=== PATIENT | male | born 1955 | race Caucasian/White ===

== ENCOUNTER 2018-01-24 15:22 | Emergency (ER) | payer OTHER ==
[~2018-01-24] VITALS: Ht 177.8 cm; Wt 93.2 kg
[2018-01-24 16:12] VITALS: BP 183/101; TEMP 99.5
[2018-01-24] MEDS ORDERED: FLEXERIL 1010 MG/TAB PO (16:49)
[2018-01-24] MEDS ORDERED: NORCO 325 MG-51 TAB PO (16:49)
[2018-01-24 17:22] VITALS: PULSE 81
== END 2018-01-24 17:22 | disposition home or self-care (01) ==
LOC: COL.ER 15:22
DX: S54.02XA Injury of ulnar nerve at forearm level, left arm, initial encounter (principal); M25.511 Pain in right shoulder; I10 Essential (primary) hypertension; Z23 Encounter for immunization; Z98.890 Other specified postprocedural states; V74.6XXA Passenger on bus injured in collision with heavy transport vehicle or bus in traffic accident, initial encounter

== ENCOUNTER 2018-07-08 14:04 | Day surgery (SDC) | payer OTHER ==
[~2018-07-08] VITALS: Ht 177.8 cm; Wt 91.5 kg
[2018-07-08] VITALS (8 sets, daily range): BP systolic 136–1039; BP diastolic 80–92; PULSE 72–98; TEMP 98–998
[~2018-07-08 14:04] MED LIST: ASPIRIN 32325 MG/TAB PO; COZAAR 50MG50 MG/TAB PO; FLEXERIL 1010 MG/TAB PO; NORCO 325 MG-51 TAB PO; PRIL40 PO; TOPROL XL 50MG50 MG PO
[2018-07-08] MEDS ORDERED: LOPID 600M600 MG/TAB PO (14:31)
[2018-07-08] MEDS ORDERED: EPA FISH OIL1 SGL PO (14:32)
[2018-07-08] MEDS ORDERED: PRAVACHOL 40MG40 MG PO (14:33)
[2018-07-09] VITALS (11 sets, daily range): BP systolic 114–163; BP diastolic 74–112; PULSE 84–109; TEMP 97.5–98.5
== END 2018-07-09 12:47 | disposition home or self-care (01) ==
LOC: SDCO 14:04 → SURG 16:40 → SDCO 07-09 12:47
DX: C67.5 Malignant neoplasm of bladder neck (principal); N30.31 Trigonitis with hematuria; F41.0 Panic disorder [episodic paroxysmal anxiety]; I35.1 Nonrheumatic aortic (valve) insufficiency; E78.5 Hyperlipidemia, unspecified; I10 Essential (primary) hypertension; K75.81 Nonalcoholic steatohepatitis (NASH); G47.33 Obstructive sleep apnea (adult) (pediatric); G43.909 Migraine, unspecified, not intractable, without status migrainosus; D69.6 Thrombocytopenia, unspecified; K21.9 Gastro-esophageal reflux disease without esophagitis; F43.10 Post-traumatic stress disorder, unspecified; Z96.642 Presence of left artificial hip joint; Z79.82 Long term (current) use of aspirin; Z83.3 Family history of diabetes mellitus; Z82.49 Family history of ischemic heart disease and other diseases of the circulatory system; Z80.1 Family history of malignant neoplasm of trachea, bronchus and lung
CPT/HCPCS: OP; J0690; J1100; J1885; J2405; J2704; J3010; J3480; J7120; Q9967

== ENCOUNTER 2018-07-23 06:24 | Day surgery (SDC) | payer OTHER ==
[~2018-07-23] VITALS: Ht 177.8 cm; Wt 97.7 kg
[2018-07-23] VITALS (10 sets, daily range): BP systolic 128–151; BP diastolic 73–90; PULSE 59–92; TEMP 97.6–98.3
[~2018-07-23 06:24] MED LIST changes: +EPA FISH OIL1 SGL PO; +LOPID 600M600 MG/TAB PO; +PRAVACHOL 40MG40 MG PO
[2018-07-24 03:32] VITALS: BP 125/54; PULSE 68; TEMP 98.2
[2018-07-24 08:35] VITALS: BP 147/90; PULSE 71; TEMP 97.6
[2018-07-24 13:00] VITALS: BP 143/77; PULSE 71; TEMP 97.5
== END 2018-07-24 14:57 | disposition home or self-care (01) ==
LOC: SDCO 06:24 → SURG 10:30 → SDCO 07-24 14:57
DX: C61 Malignant neoplasm of prostate (principal); F41.0 Panic disorder [episodic paroxysmal anxiety]; I35.0 Nonrheumatic aortic (valve) stenosis; E78.5 Hyperlipidemia, unspecified; I10 Essential (primary) hypertension; K75.81 Nonalcoholic steatohepatitis (NASH); G47.33 Obstructive sleep apnea (adult) (pediatric); N30.30 Trigonitis without hematuria; H54.62 Unqualified visual loss, left eye, normal vision right eye; K21.9 Gastro-esophageal reflux disease without esophagitis; F43.10 Post-traumatic stress disorder, unspecified; D69.6 Thrombocytopenia, unspecified; Z96.642 Presence of left artificial hip joint; Z79.82 Long term (current) use of aspirin; Z83.3 Family history of diabetes mellitus; Z82.49 Family history of ischemic heart disease and other diseases of the circulatory system; Z82.3 Family history of stroke; Z80.1 Family history of malignant neoplasm of trachea, bronchus and lung
CPT/HCPCS: OP; J0690; J1100; J1885; J2405; J2704; J3010; J7120

== ENCOUNTER 2018-12-01 10:30 | Outpatient (RCR) | payer OTHER | END 2019-01-21 | disposition home or self-care (01) | LOC: MKS.ESL.OT | DX: H54.62 Unqualified visual loss, left eye, normal vision right eye (principal); Z79.2 Long term (current) use of antibiotics; Z79.82 Long term (current) use of aspirin; Z79.899 Other long term (current) drug therapy ==

== ENCOUNTER 2019-02-18 15:37 | Inpatient (IN) | payer OTHER ==
[~2019-02-18] VITALS: Ht 177.8 cm; Wt 87.9 kg
[~2019-02-18 15:37] MED LIST changes: -PRIL40 PO; +PRILOSEC 20MG20 MG PO
[2019-03-03] VITALS (12 sets, daily range): BP systolic 116–178; BP diastolic 67–93; PULSE 59–77; TEMP 97.7–98
[2019-03-03] MEDS ORDERED: LOPRESSOR100 MG PO (11:27)
--- NOTE | 2019-03-03 11:30 | NUR ---
The patient ambulated back to [place] [facility] independently using a steady gait and appeared to tolerate the activity well. Vital signs obtained. Consent signed. 18G IV started in right wrist with one stick, LR infusing without difficulty. Heart Reg with murmur present. Lungs clear. Bowel sounds audible. Call light is within reach. brought back to be at his bedside. The patient denies any further needs at this time. Will continue to monitor the patient.
--- NOTE | 2019-03-03 16:42 | NUR ---
Patient doing well post op. Denies pain. VSS on room air. Scds ble. CBI to slow/mod rate. fruit punch tinged output, no clots noted. He tolerated meal, no nausea. Iv to INT.
--- NOTE | 2019-03-03 19:27 | NUR ---
Patient standing at bedside, he is experiencing bladder spasms. Leaking noted around fole. Prn levsin per orders. Notified & updated him on patient status, patient to stay tonight continue with CBI. Cbi output dark pink tinged with CBI to mod rate. Patient home meds reordered. Hand irrigation completed, no clots obtained. Jacque Rn given bedside report
--- NOTE | 2019-03-03 22:48 | NUR ---
Hand irrigated catheter per patient request, no clots returned. Patient having less bladder spasms after dose of Levsin, will have drainage around catheter with spasm. Offered B&O suppository for spasms, denied need at this time. Reports no pain, CBI continues at moderate rate.
--- NOTE | 2019-03-03 23:15 | NUR ---
Patient continues to have intermittent bladder spasms with drainage around sampson catheter. Levsin SL given at this time.
--- NOTE | 2019-03-04 00:30 | NUR ---
PATIENT REPORTS LESS BLADDER SPASMS.
--- NOTE | 2019-03-04 03:20 | NUR ---
Patient still having bladder spasms, hand irrigated catheter for return of numerous small clots. Patient had immediate relief, increased CBI to irrigate. Medicated with Levsin at this time. Patient without bladder spasms at 0340 while nurse remained in the room. Instructed patient to call if spasms return.
[2019-03-04 03:34] VITALS: BP 129/65; PULSE 66; TEMP 98.2
--- NOTE | 2019-03-04 04:22 | NUR ---
Patient remains without bladder spasms, catheter draining dark pink urine with CBI at moderate rate.
--- NOTE | 2019-03-04 06:15 | NUR ---
Patient denies bladder spasms, urine dark red. Hand irrigated with no return of any clots. CBI at moderate rate.
[2019-03-04 08:12] VITALS: BP 127/72; PULSE 64; TEMP 97.8
--- NOTE | 2019-03-04 09:33 | NUR ---
Initial visit; Patient and his thanked Him Assistant for looking in on Jerad and keeping him in her prayers.
--- NOTE | 2019-03-04 09:47 | NUR ---
CARMENZA met with the patient to discuss a discharge plan. The patient lives in [place] with his , Nazanin. The patient has an accessible shower and a walker, but does not need it to ambulate. The patient reports independence with ADLs. The patient's PCP is through the OR and may use Dr. Rebolledo, if needed. The patient receives his medication via mail from the OR. The patient does not have advanced directives in the EMR, but reports he does have them completed. The patient plans to return home upon discharge. There are no additional needs at this time.
--- NOTE | 2019-03-04 11:30 | NUR ---
At change of shift this am, increased CBI. Urine is starting to get less red. No clots noted. Patient denies pain or bladder spasms at this time. CBI is flowing very quickly, we are emptying his catheter every 30-[address] Lua has been in and seen patient. He is planning to keep patient overnight to observe. No other changes at this time. Call light within reach.
--- NOTE | 2019-03-04 11:38 | NUR ---
First visit from the physical therapy aide. No needs right now.
[2019-03-04 12:22] VITALS: BP 115/60; PULSE 57; TEMP 98.3
[2019-03-04 15:55] VITALS: BP 118/66; PULSE 60; TEMP 98.1
--- NOTE | 2019-03-04 16:08 | NUR ---
PATIENT IN ROOM IN BED WHEN DOUBLE NEEDLE OPERATOR LOCKSTITCH ARRIVED. AT BEDSIDE. CBI IN PLACE AND DRAINING. PATIENT TOLERATING WELL. BAG DRAINED AT THIS TIME. NO CONCERNS AT THIS TIME. NO COMPLAINTS VOICED FROM PATIENT. REPORT GIVEN TO PRIMARY.
--- NOTE | 2019-03-04 17:20 | NUR ---
c/o having bladder spasms, medicated with levsin po
--- NOTE | 2019-03-04 17:45 | NUR ---
assisted up to bathroom to try and have bowel movment, was not succesful but stated when he stood up he had a couple of clots and then felt like the pressure and the spasm was gone, back in bed now with CBI continuing to run at fast rate and urine in tubing is pink
--- NOTE | 2019-03-04 19:00 | NUR ---
Patients urine is starting to look a lot better. No clots noted at this time. His CBI has been slowed down. Family at bedside. Patient did have some spasms earlier in the afternoon, levsin given and it helped. When he got up to the bathroom he also had a few clots pass through and he stated that helped a lot as well. No other changes at this time. Call light within reach.
[2019-03-04 19:57] VITALS: BP 125/64; PULSE 57; TEMP 97.8
--- NOTE | 2019-03-04 20:00 | NUR ---
Patient takes HS meds. Denies bladder spasms. CBI is at moderate rate, urine is pink tinged without noted clots, draining well at this time. Patient denies pain. SL to right wrist without redness or swelling noted.
[2019-03-04 23:33] VITALS: BP 108/60; PULSE 60; TEMP 97.6
--- NOTE | 2019-03-05 03:13 | NUR ---
Urine remain light pink with no clots noted.
[2019-03-05 03:32] VITALS: BP 107/60; PULSE 56; TEMP 97.9
--- NOTE | 2019-03-05 06:00 | NUR ---
Urine remains light pink, CBI at slow rate. Patient denies pain, no concerns this AM.
[2019-03-05 08:07] VITALS: BP 132/74; PULSE 56; TEMP 97.9
--- NOTE | 2019-03-05 11:00 | NUR ---
Talley catheter has been discontinued. Patient tolerated it well. Explained six bottle routine and the criteria for discharge. Patient verbalized understanding. Patient denies any pain or spasms. No other changes at this time. Call light within reach.
[2019-03-05 12:15] VITALS: BP 147/76; PULSE 58; TEMP 97.7
--- NOTE | 2019-03-05 15:30 | NUR ---
Patient is discharging home. Discharge instructions discussed with patient. No questions verbalized. INT discontinued. Patient has a one week follow up scheduled. Copies of discharge instructions sent with patient. All belongings packed up and sent with him. No other changes at this time. Call light within reach.
== END 2019-03-05 15:30 | disposition home or self-care (01) | DRG 670 ==
LOC: SURG 03-03 10:51 → INPTSU 03-03 10:51 → SDCO 03-03 13:00 → EDSTATUS 03-03 13:00 → SURG 03-03 13:00
PROVIDERS: ADMIT Urology
PROC: 0TBB8ZZ Excision of Bladder, Via Natural or Artificial Opening Endoscopic (ICD-10-PCS; principal; 2019-03-03 13:00)
DX: C67.4 Malignant neoplasm of posterior wall of bladder (principal); F41.9 Anxiety disorder, unspecified; E78.5 Hyperlipidemia, unspecified; I10 Essential (primary) hypertension; K75.81 Nonalcoholic steatohepatitis (NASH); Z86.73 Personal history of transient ischemic attack (TIA), and cerebral infarction without residual deficits; Z96.642 Presence of left artificial hip joint
CPT/HCPCS: J0690; J1100; J1885; J2405; J2704; J3010; J7120

== ENCOUNTER 2020-03-02 11:41 | Emergency (ER) | payer OTHER ==
[~2020-03-02] VITALS: Ht 177.8 cm; Wt 90.9 kg
[~2020-03-02 11:41] MED LIST changes: +LOPRESSOR100 MG PO
[2020-03-02 13:49] LABS: BASO # 0.1 (0.0-0.2); BASO % 1.2 % (0.0-2.0); EOS # 0.4 (0.0-0.7); EOS % 5.6 % (0-4.0); GRAN # 4.2 (1.4-6.5); GRAN % 61.5 % (42.2-75.2); HEMATOCRIT 44.5 % (42.0-52.0); HEMOGLOBIN 15.3 g/dl (13.5-18.0); LYMPH # 1.5 (1.2-3.4); LYMPH % 22.4 % (20.0-51.0); MEAN CELL VOLUME 96 fl (80.0-100.0); MEAN CORPUSCULAR HEMOGLOBIN 33 pg (27.0-31.0); MEAN CORPUSCULAR HGB CONC 34 g/dl (33.0-37.0); MEAN PLATELET VOLUME 11.5 fl (7.4-10.4); MONO # 0.6 (0.1-0.6); PLATELET COUNT 101 K/mm3 (130-400); RED BLOOD COUNT 4.66 M/mm3 (4.20-5.60); REDCELL DISTRIBUTION WIDTH-CV 13.5 % (11.5-14.5)
[2020-03-02 14:06] LABS: ALANINE AMINOTRANSFERASE 29 U/L (4-49); ALBUMIN 4.1 gm/dL (3.5-5.0); ALKALINE PHOSPHATASE 95 U/L (50-136); ANION GAP 7 mmol/L (7-16); AST,SGOT 50 U/L (15-37); BILIRUBIN,TOTAL 1.6 mg/dL (0.0-1.0); BLOOD UREA NITROGEN 14 mg/dL (9-20); CALCIUM 9.5 mg/dL (8.4-10.2); CARBON DIOXIDE 26 mmol/L (22-30); CHLORIDE 105 mmol/L (98-107); GLUCOSE 109 mg/dL (74-106); POTASSIUM 4.1 mmol/L (3.4-5.0); SODIUM 137 mmol/L (137-145); TOTAL PROTEIN 8.2 gm/dL (6.4-8.2)
[2020-03-02 14:07] LABS: C-REACTIVE PROTEIN < 0.5 mg/dL (0.0-0.9)
[2020-03-02 14:18] LABS: TROPONIN-I 0.042 ng/mL (0.000-0.035)
[2020-03-02 17:00] VITALS: BP 166/104; PULSE 79; TEMP 98.2
[2020-03-02] MEDS ORDERED: ZITHROMAX Z PA250 MG PO (17:18)
== END 2020-03-02 17:30 | disposition home or self-care (01) ==
LOC: COL.ER 11:41
PROVIDERS: Nurse Practitioner
DX: R05 Cough (principal); I10 Essential (primary) hypertension; I35.0 Nonrheumatic aortic (valve) stenosis; Z85.51 Personal history of malignant neoplasm of bladder; Z79.899 Other long term (current) drug therapy

== ENCOUNTER 2020-06-28 15:54 | Outpatient (RCR) | payer OTHER ==
[~2020-06-28 15:54] MED LIST changes: +ZITHROMAX Z PA250 MG PO
== END 2020-09-17 | disposition home or self-care (01) ==
LOC: COL.CR
DX: Z48.812 Encounter for surgical aftercare following surgery on the circulatory system (principal)

== ENCOUNTER 2023-08-08 08:21 | Day surgery (SDC) | payer OTHER ==
[~2023-08-08] VITALS: Ht 177.8 cm; Wt 85.7 kg
[2023-08-08] MEDS ORDERED: COZAAR 25MG25 MG/TAB PO (10:00)
[2023-08-08] MEDS ORDERED: ASPIRIN E.C. 8181 MG PO (10:01)
[2023-08-08] MEDS ORDERED: LIPITOR20 MG PO (10:02)
[2023-08-08] MEDS ORDERED: COREG 3.123.125 MG/T PO (10:02)
[2023-08-08] MEDS ORDERED: JARDIANCE25 PO (10:04)
[2023-08-08] MEDS ORDERED: PEPCID 20MG TAB20 MG PO (10:05)
[2023-08-08] MEDS ORDERED: TRICOR145 MG PO (10:05)
[2023-08-08] MEDS ORDERED: KLOR-CON20 MEQ PO (10:06)
[2023-08-08 10:13] VITALS: BP 128/81; PULSE 58; TEMP 97.7
[2023-08-08 10:52] VITALS: BP 102/76; PULSE 63; TEMP 97.7
--- NOTE | 2023-08-08 10:52 | NUR ---
1052 PATIENT RETURNS TO ROOM 2 VIA CART. PATIENT IS ALERT AND ORIENTED. PATIENT AMBULATES TO RECLINER WITH THE ASSISTANCE OF 2 NURSES. RESPIRATIONS EVEN AND UNLABORED, ON ROOM AIR. VITAL SIGNS OBTAINED. PATIENT IN ROOM. PATIENT REQUESTED ICE CHIPS. TOLERATED WELL. 1100 THIS NURSE DISCONTINUED IV FROM RIGHT HAND WITH NO COMPLICATIONS. IV CATHETER INTACT. 1115 THIS NURSE REVIEWED DISCHARGE INSTRUCTIONS WITH PATIENT AND PATIENT . BOTH VERBALIZED UNDERSTANDING. 1120 PATIENT DISCHARGED FROM UNIT VIA WHEELCHAIR IN STABLE CONDITION.
[2023-08-08 11:07] VITALS: BP 114/80; PULSE 61
[2023-08-08 11:15] VITALS: BP 11/74; PULSE 63
== END 2023-08-08 11:20 | disposition home or self-care (01) ==
LOC: SDCO 08:21
DX: I85.00 Esophageal varices without bleeding (principal); K29.30 Chronic superficial gastritis without bleeding; K74.60 Unspecified cirrhosis of liver; K75.81 Nonalcoholic steatohepatitis (NASH); I50.9 Heart failure, unspecified; I34.0 Nonrheumatic mitral (valve) insufficiency; I10 Essential (primary) hypertension; G47.33 Obstructive sleep apnea (adult) (pediatric); K21.9 Gastro-esophageal reflux disease without esophagitis; Z95.2 Presence of prosthetic heart valve; Z79.899 Other long term (current) drug therapy; Z98.890 Other specified postprocedural states; Z79.82 Long term (current) use of aspirin
CPT/HCPCS: J2704; J7120

== ENCOUNTER 2023-08-21 06:01 | Day surgery (SDC) | payer OTHER ==
[~2023-08-21] VITALS: Ht 177.8 cm; Wt 86.9 kg
[~2023-08-21 06:01] MED LIST changes: +ASPIRIN E.C. 8181 MG PO; +COREG 3.123.125 MG/T PO; +COZAAR 25MG25 MG/TAB PO; +JARDIANCE25 PO; +KLOR-CON20 MEQ PO; +LIPITOR20 MG PO; +PEPCID 20MG TAB20 MG PO; +TRICOR145 MG PO
[2023-08-21 06:30] VITALS: BP 126/83; PULSE 66; TEMP 98.1
--- NOTE | 2023-08-21 07:06 | NUR ---
PATIENT STATES HEMORRHOIDS ARE ACTIVELY BLEEDING THIS AM.
[2023-08-21 09:20] VITALS: BP 135/79; PULSE 61; TEMP 97.2
[2023-08-21 09:30] VITALS: BP 118/79; PULSE 63
[2023-08-21 09:45] VITALS: BP 131/81; PULSE 57; TEMP 97.2
--- NOTE | 2023-08-21 12:10 | NUR ---
0913 RECEIVED REPORT FROM PATRICIA Abdul RN, PACU 0920 PT RETURNED TO BAY 7, BREATHING EVEN AND UNLABORED, ALERT AND ORIENTED. 0932 PT GIVEN JUICE AND TOAST FOR PO CHALLENGE. TOLERATED WELL. AMBULATORY TO RESTROOM. VOIDING ITHOUT DIFFICULTY. 1007 REVIEWED PHYSICIAN DISCHARGE INSTRUCTIONS AND PT EDUCATIONAL MATERIAL WITH PT AND HIS . IVITED AND ANSWERED QUESTIONS. 1015 PT TO LOBBY VIA WHEEL CHAIR FOR RIDE HOME WITH HIS IN POV.
== END 2023-08-21 10:15 | disposition home or self-care (01) ==
LOC: SDCO 06:01
DX: K64.1 Second degree hemorrhoids (principal); K74.60 Unspecified cirrhosis of liver; Z85.51 Personal history of malignant neoplasm of bladder; Z79.899 Other long term (current) drug therapy
CPT/HCPCS: J1100; J2405; J2704; J3010; J7120

== ENCOUNTER 2024-02-21 11:01 | Inpatient (IN) | payer OTHER ==
[~2024-02-21] VITALS: Ht 177.8 cm; Wt 84.9 kg
[2024-02-21 11:23] LABS: BASO # 0.1 K/mm3 (0.0-0.2); BASO % 0.8 % (0.0-2.0); EOS # 0.2 K/mm3 (0.0-0.7); EOS % 2.7 % (0.0-4.0); GRAN % 60.7 % (42.2-75.2); HEMATOCRIT 50.5 % (42.0-52.0); HEMOGLOBIN 16.9 g/dl (13.5-18.0); LYMPH # 2.3 K/mm3 (1.2-3.4); LYMPH % 27.1 % (20.0-51.0); MEAN CELL VOLUME 99 fl (80.0-100.0); MEAN CORPUSCULAR HEMOGLOBIN 33 pg (27-31); MEAN CORPUSCULAR HGB CONC 34 g/dl (33.0-37.0); MEAN PLATELET VOLUME 11.9 fl (7.4-10.4); MONO # 0.7 K/mm3 (0.1-0.6); MONO % 8.3 % (1.7-9.3); PLATELET COUNT 115 K/mm3 (130-400); RED BLOOD COUNT 5.12 M/mm3 (4.20-5.60); REDCELL DISTRIBUTION WIDTH-CV 14.3 % (11.5-14.5)
[2024-02-21] MEDS ORDERED: Ondansetron 4 MG/2 ML VIAL IV ONE (11:30)
[2024-02-21] MEDS ORDERED: Metoprolol Tartrate 5 MG/5 ML VIAL IV SCH (11:30)
[2024-02-21] MEDS ORDERED: Meclizine 25 MG TAB PO ONE (11:30)
[2024-02-21] MEDS ORDERED: NS 1,000 ML IV ONE (11:30)
[2024-02-21 11:42] LABS: ALBUMIN 3.2 g/dL (3.4-4.8); BILIRUBIN,TOTAL 1.8 mg/dL (0.2-1.2); CALCIUM 10.3 mg/dL (8.4-10.2); TOTAL PROTEIN 8.8 g/dl (6.2-8.1)
[2024-02-21 12:01] LABS: CREATININE, serum 1.14 mg/dL (0.72-1.25)
[2024-02-21 13:00] VITALS: BP_SYST 136
[2024-02-21] MEDS ORDERED: Amoxicillin/Clavulanate K+ 875/125 MG TAB PO ONE (13:15)
[2024-02-21] MEDS ORDERED: Carvedilol 6.25 MG TAB PO ONE (13:15)
[2024-02-21] MEDS ORDERED: COREG 6.256.25 MG/TA PO (14:19)
[2024-02-21] MEDS ORDERED: TOBRADEX EYE DRO5 ML OP (14:21)
[2024-02-21] MEDS ORDERED: JARDIANCE10 PO (14:22)
[2024-02-21] MEDS ORDERED: NS 100 ML IV SCH (14:24)
[2024-02-21] MEDS ORDERED: Iohexol 300 - 100 ML VIAL IV ONE (14:24)
[2024-02-21] MEDS ORDERED: PROTONIX20 MG PO (14:28)
[2024-02-21] MEDS ORDERED: LASIX 20MG TABL20 MG PO (14:29)
[2024-02-21] MEDS ORDERED: XIFAXAN550 MG PO (14:29)
[2024-02-21 15:34] VITALS: BP 136/90; PULSE 62; TEMP 98.1
[2024-02-21] MEDS ORDERED: FLOVENT DI50 MCG/Act IH (15:43)
[2024-02-21] MEDS ORDERED: VITAMIN D 400400 IU PO (15:46)
--- NOTE | 2024-02-21 16:00 | NUR ---
Patient admitted to room 308. Med rec reviewed with list provided. called and made aware of his arrival. Ice chips provided per his request.
[2024-02-21] MEDS ORDERED: Ondansetron 4 MG/2 ML VIAL IV PRN (17:00)
[2024-02-21] MEDS ORDERED: Polyethylene Glycol 3350 17 GM PDS PO PRN (17:00)
[2024-02-21] MEDS ORDERED: Docusate Sodium 100 MG CAP PO PRN (17:00)
[2024-02-21] MEDS ORDERED: Carvedilol 6.25 MG TAB PO SCH (17:00)
[2024-02-21] MEDS ORDERED: NS 1,000 ML IV SCH (17:00)
[2024-02-21] MEDS ORDERED: Acetaminophen 325 MG TAB PO PRN (17:00)
[2024-02-21] MEDS ORDERED: [UNRECOGNIZED DRUG - REMARK] OP SCH (17:30)
[2024-02-21 18:02] VITALS: BP_SYST 136
--- NOTE | 2024-02-21 18:42 | NUR ---
CRTICAL TROPONIN CALLED TO [facility]. Ekg ORDERS ALSO OBTAINED PER REQUEST FROM BOX BENDER.
--- NOTE | 2024-02-21 18:57 | NUR ---
Corrine Grider called and made her aware of EKG results
[2024-02-21 20:00] VITALS: BP 156/85; PULSE 63; TEMP 97.9
[2024-02-21 20:30] VITALS: BP_SYST 156
--- NOTE | 2024-02-21 20:30 | NUR ---
Initial shift assessment done- denies pain, denies dizziness, states just feels somewhat unsteady when he walks, bed alarm on- understands to call for assist with getting up, also urinal given per pts requests. Tele on, Iv fluids of NS at 75cc/hr, HS snack given - very pleasant/alert/oriented, states will get a MRI on Friday-
[2024-02-21] MEDS ORDERED: rifAXIMin 550 MG TAB PO SCH (21:00)
[2024-02-21] MEDS ORDERED: Atorvastatin 10 MG TAB PO SCH (21:00)
--- NOTE | 2024-02-21 21:00 | NUR ---
Corrine WESLEY called with critical troponin of 0.066, will recheck the troponin in the AM -
[2024-02-21 22:52] VITALS: BP 144/85; PULSE 61; TEMP 98.1
[2024-02-22] VITALS (11 sets, daily range): BP systolic 118–144; BP diastolic 73–88; PULSE 49–66; TEMP 97.6–98.2
--- NOTE | 2024-02-22 05:44 | NUR ---
Did get a few hours of sleep, denies pain/SOB, nausea, neuros intact, no deficits, gait " per wobbly" per pt.
[2024-02-22 07:43] LABS: BASO # 0.1 K/mm3 (0.0-0.2); BASO % 1.1 % (0.0-2.0); EOS # 0.2 K/mm3 (0.0-0.7); EOS % 3.1 % (0.0-4.0); GRAN # 2.6 K/mm3 (1.4-6.5); GRAN % 45.9 % (42.2-75.2); HEMATOCRIT 42.6 % (42.0-52.0); LYMPH # 2.2 K/mm3 (1.2-3.4); LYMPH % 40.3 % (20.0-51.0); MEAN CELL VOLUME 96 fl (80.0-100.0); MEAN CORPUSCULAR HEMOGLOBIN 33 pg (27-31); MEAN CORPUSCULAR HGB CONC 35 g/dl (33.0-37.0); MEAN PLATELET VOLUME 12.6 fl (7.4-10.4); MONO # 0.5 K/mm3 (0.1-0.6); MONO % 9.2 % (1.7-9.3); PLATELET COUNT 74 K/mm3 (130-400); RED BLOOD COUNT 4.42 M/mm3 (4.20-5.60); REDCELL DISTRIBUTION WIDTH-CV 14.1 % (11.5-14.5)
--- NOTE | 2024-02-22 07:45 | NUR ---
Patient laying in bed sleeping, easily awakened with verbal command. A&Ox3. VSS. IV CDI, fluids infusing. Denies pain and discomfort. Call light within reach
[2024-02-22 07:47] LABS: HEMOGLOBIN 14.7 g/dl (13.5-18.0)
[2024-02-22] MEDS ORDERED: Fenofibrate 54 MG TABLET PO SCH (09:00)
[2024-02-22] MEDS ORDERED: Fenofibrate (Tricor) 145 MG **** subs to Fenofibrate (Lofibra) 162 MG PO SCH (09:00)
--- NOTE | 2024-02-22 09:30 | NUR ---
Critical lab reported to dr del real
--- NOTE | 2024-02-22 10:51 | NUR ---
SW met with patient to complete intake. Patient states that he lives in [facility] with spouse Nazanin Montemayor [phone] who has also been appointment his DPOA/HC. Patient provides he does not utilize DME, is independent with ADL's and does not utilize HH services at this time. PCP is the [facility], and pharmacy is [facility]. Patient provides his plan is to go back to his home upon discharge. SW will continue to follow. Discharge plan: home with spouse
[2024-02-22 11:15] LABS: ALBUMIN 2.6 g/dL (3.4-4.8); BILIRUBIN,TOTAL 1.2 mg/dL (0.2-1.2); CALCIUM 9.1 mg/dL (8.4-10.2); CREATININE, serum 0.84 mg/dL (0.72-1.25); POTASSIUM 3.8 mEq/L (3.5-4.5); TOTAL PROTEIN 7.1 g/dl (6.2-8.1)
--- NOTE | 2024-02-22 15:14 | NUR ---
CRITICAL TELE ABNORMAL RHYTHM REPORTED TO DR CHANDLER
[2024-02-23] VITALS (24 sets, daily range): BP systolic 119–149; BP diastolic 78–99; PULSE 54–77; TEMP 97.3–98.6
[2024-02-23 06:35] LABS: EOS # 0.2 K/mm3 (0.0-0.7); EOS % 4.7 % (0.0-4.0); GRAN # 1.8 K/mm3 (1.4-6.5); HEMATOCRIT 39.6 % (42.0-52.0); HEMOGLOBIN 13.6 g/dl (13.5-18.0); LYMPH # 1.4 K/mm3 (1.2-3.4); LYMPH % 36.6 % (20.0-51.0); MEAN CELL VOLUME 96 fl (80.0-100.0); MEAN CORPUSCULAR HEMOGLOBIN 33 pg (27-31); MEAN CORPUSCULAR HGB CONC 34 g/dl (33.0-37.0); MONO # 0.4 K/mm3 (0.1-0.6); MONO % 10.7 % (1.7-9.3); PLATELET COUNT 63 K/mm3 (130-400); RED BLOOD COUNT 4.13 M/mm3 (4.20-5.60)
[2024-02-23 06:54] LABS: ALBUMIN 2.4 g/dL (3.4-4.8); CALCIUM 8.3 mg/dL (8.4-10.2); CREATININE, serum 0.82 mg/dL (0.72-1.25); POTASSIUM 3.8 mEq/L (3.5-4.5)
--- NOTE | 2024-02-23 07:30 | NUR ---
awake resting in bed, bedside shift report received from VALERIE Carter
--- NOTE | 2024-02-23 07:45 | NUR ---
full assessment completed, see interventions for further info, denies needs at this time
--- NOTE | 2024-02-23 08:45 | NUR ---
staff here to take patient for MRI per WC, assisted up to bathroom, ambulates into bathroom but gait is a litle unsteady, he denies dizziness or N/V
[2024-02-23] MEDS ORDERED: Gadoterate 20 ML VIAL IV ONE (09:21)
[2024-02-23] MEDS ORDERED: FLONASE NASAL S16 GM NAS (10:01)
[2024-02-23] MEDS ORDERED: PEPCID 20MG TAB20 MG PO (10:01)
[2024-02-23] MEDS ORDERED: Regadenoson 0.08 MG/ML 5 ML SYRINGE IV SCH (10:11)
--- NOTE | 2024-02-23 10:16 | NUR ---
remains off unit for stress test and MRI
[2024-02-23] MEDS ORDERED: 1/2 NS 1,000 ML IV SCH (11:00)
--- NOTE | 2024-02-23 11:15 | NUR ---
returned per WC from MRI, stress test and echo, will plan for DEAN and loop recorder later, will remain NPO and patient notified of this
--- NOTE | 2024-02-23 11:40 | NUR ---
telemetry on, consents signed for SAI and loop recorder impmlantation
--- NOTE | 2024-02-23 11:57 | NUR ---
physical therapy in assessing patient's dizziness
[2024-02-23] MEDS ORDERED: TOBRADEX EYE DRO5 ML OP (13:54)
--- NOTE | 2024-02-23 14:11 | NUR ---
occupational therapy in to see patient
--- NOTE | 2024-02-23 14:20 | NUR ---
to picket [employer] per bed
[2024-02-23] MEDS ORDERED: Lidocaine PF 2% (20 MG/ML) 5 ML VIAL ONE (14:42)
[2024-02-23] MEDS ORDERED: Magnesium Sulfate 4% 50 ML IV ONE (15:30)
--- NOTE | 2024-02-23 15:35 | NUR ---
See moderate sedation form and loop implant form for charting. See anesthesia form. Manual pressure held for approximately 20 minutes following loop implant. Some vitalscharted using meditech post op while pressure held.
--- NOTE | 2024-02-23 15:55 | NUR ---
Bedside report completed with Maday LINK. Call light in reach, telemetry in place, instertion site reviewed, first set of vitals reviewed. No post op fluids. Maday Link denies questions/concerns at this time.
--- NOTE | 2024-02-23 15:55 | NUR ---
returned from manufacturing laborer per bed, awake and alert, INT intact and Mg dose started, am meds and sotalol started at this time, dressing to left chest is CD&I, assisted up to bathroom and ambulates with steady gait, voids qs, then back to bed, will order something to eat now, denies pain or needs
--- NOTE | 2024-02-23 16:30 | NUR ---
on the phone ordering supper,
--- NOTE | 2024-02-23 17:22 | NUR ---
sitting up in bed eating supper
--- NOTE | 2024-02-23 18:47 | NUR ---
bedside shift report given to VALERIE Carter
[2024-02-23] MEDS ORDERED: Cephalexin 500 MG CAP PO SCH (21:00)
[2024-02-24] VITALS (10 sets, daily range): BP systolic 127–161; BP diastolic 65–95; PULSE 52–86; TEMP 97.8–99.4
[2024-02-24 06:50] LABS: BASO % 1.1 % (0.0-2.0); EOS # 0.2 K/mm3 (0.0-0.7); EOS % 6.1 % (0.0-4.0); GRAN # 1.8 K/mm3 (1.4-6.5); GRAN % 47.8 % (42.2-75.2); HEMATOCRIT 40.1 % (42.0-52.0); LYMPH # 1.3 K/mm3 (1.2-3.4); LYMPH % 34.3 % (20.0-51.0); MEAN CELL VOLUME 94 fl (80.0-100.0); MEAN CORPUSCULAR HEMOGLOBIN 33 pg (27-31); MEAN CORPUSCULAR HGB CONC 35 g/dl (33.0-37.0); MEAN PLATELET VOLUME 12.5 fl (7.4-10.4); MONO # 0.4 K/mm3 (0.1-0.6); MONO % 10.4 % (1.7-9.3); PLATELET COUNT 67 K/mm3 (130-400); RED BLOOD COUNT 4.26 M/mm3 (4.20-5.60); REDCELL DISTRIBUTION WIDTH-CV 13.5 % (11.5-14.5)
[2024-02-24 07:18] LABS: ALBUMIN 2.5 g/dL (3.4-4.8); BILIRUBIN,TOTAL 1.4 mg/dL (0.2-1.2); CALCIUM 8.9 mg/dL (8.4-10.2); CREATININE, serum 0.75 mg/dL (0.72-1.25); POTASSIUM 3.8 mEq/L (3.5-4.5); TOTAL PROTEIN 6.6 g/dl (6.2-8.1)
[2024-02-24 08:22] LABS: CHOLESTEROL RISK RATIO 4.3
--- NOTE | 2024-02-24 10:46 | NUR ---
Initial visit attempt; Patient indisposed, Salesperson Jewelry spoke with his who said she would give him Salesperson Jewelry's card and let him know [facility] is available.
--- NOTE | 2024-02-24 11:13 | NUR ---
Patient alert and oriented x4. Shift assessment complete this morning. Patient denies pain, complains of increased mucus in morning. Requested incentive spirometer. Activity at baseline. Shower set-up assistance provided. at bedside. Noted QTc on EKG this morning to be 509, cardiology notified, orders obtained to hold Sotalol for now. Patient resting in bed with call light in reach, all needs met at this time.
--- NOTE | 2024-02-24 15:59 | NUR ---
Verbal orders received around noon to administer morning dose of Sotalol per orders from Dr. Bradley. Sotalol administered.
--- NOTE | 2024-02-24 19:06 | NUR ---
Patient remains stable. Denies pain or discomfort. Only concern patient voices is missing heart valve ID card, states he took it to MRI with him yesterday and MRI staff took it to scan and he never got it back. MRI department called and they state they cannot find it at this time. flight test supervisor notified. Call light within reach, all needs met at this time.
--- NOTE | 2024-02-24 22:53 | NUR ---
patient lying in bed, alert and oriented x4. denies chest pain and shortness of breath. reports a small headache that lasted for about fifteen minutes and then went away after taking medications and drinking smoothie. IV in RAC is patent, site is clean dry and intact. mid chest incision site with gauze dressing, clean dry and intact, small scattered bruising to extremities noted. pt has no further needs, questions or concerns at this time. fall precautions in place, call light within reach. will continue to monitor.
[2024-02-25 00:06] VITALS: BP 144/94; PULSE 52; TEMP 98.2
[2024-02-25 00:11] VITALS: BP_SYST 144
[2024-02-25 03:52] VITALS: BP 136/85; PULSE 58; TEMP 98.3
[2024-02-25 04:35] VITALS: BP_SYST 136
[2024-02-25 07:06] LABS: EOS # 0.3 K/mm3 (0.0-0.7); EOS % 6.2 % (0.0-4.0); GRAN % 48.7 % (42.2-75.2); HEMOGLOBIN 14.4 g/dl (13.5-18.0); LYMPH # 1.4 K/mm3 (1.2-3.4); LYMPH % 33.9 % (20.0-51.0); MEAN CELL VOLUME 96 fl (80.0-100.0); MEAN CORPUSCULAR HEMOGLOBIN 33 pg (27-31); MEAN CORPUSCULAR HGB CONC 34 g/dl (33.0-37.0); MEAN PLATELET VOLUME 11.6 fl (7.4-10.4); MONO # 0.4 K/mm3 (0.1-0.6); PLATELET COUNT 67 K/mm3 (130-400); RED BLOOD COUNT 4.39 M/mm3 (4.20-5.60); REDCELL DISTRIBUTION WIDTH-CV 13.6 % (11.5-14.5)
[2024-02-25 07:09] LABS: CALCIUM 8.8 mg/dL (8.4-10.2); CREATININE, serum 0.77 mg/dL (0.72-1.25)
[2024-02-25] MEDS ORDERED: Atorvastatin 80 MG TAB PO SCH (21:00)
[2024-02-26] VITALS (7 sets, daily range): BP systolic 123–146; BP diastolic 74–89; PULSE 54–59; TEMP 97.7–98.2
--- NOTE | 2024-02-26 16:47 | NUR ---
Survey Engineer spoke with Talisha, [facility] who advised they can possibly accept patient tomorrow.
--- NOTE | 2024-02-26 19:04 | NUR ---
Report given to VALERIE Christian.
--- NOTE | 2024-02-26 20:30 | NUR ---
Initial shift assessment done-- denies pain/SOB, states he will for sure go to [facility] tomorrow, neuros are good ,no deficits but pt feels weak on his left side. Chest dressing dry and intact from loop recorder placement. Tele on, SR. VSS.
[2024-02-27 01:00] VITALS: BP_SYST 127
[2024-02-27 02:35] VITALS: BP 118/74; PULSE 65; TEMP 98
[2024-02-27 07:18] VITALS: BP 120/77; PULSE 55; TEMP 98
--- NOTE | 2024-02-27 07:30 | NUR ---
Patient in bed sleeping, easily awakened with verbal command. A&Ox3. VSS. IV CDI. Denies pain and discomfort. Call light within reach
[2024-02-27] MEDS ORDERED: CEPHALEXIN500 M1 PO (08:47)
[2024-02-27] MEDS ORDERED: LIPITOR 80MG80 MG PO (08:49)
[2024-02-27] MEDS ORDERED: BETAPACE 80MG80 MG PO (08:50)
[2024-02-27 10:01] LABS: BASO # 0.1 K/mm3 (0.0-0.2); BASO % 1.1 % (0.0-2.0); EOS # 0.3 K/mm3 (0.0-0.7); EOS % 4.8 % (0.0-4.0); GRAN # 3.3 K/mm3 (1.4-6.5); GRAN % 59.1 % (42.2-75.2); HEMATOCRIT 45.6 % (42.0-52.0); LYMPH # 1.4 K/mm3 (1.2-3.4); LYMPH % 25.4 % (20.0-51.0); MEAN CELL VOLUME 94 fl (80.0-100.0); MEAN CORPUSCULAR HEMOGLOBIN 33 pg (27-31); MEAN CORPUSCULAR HGB CONC 35 g/dl (33.0-37.0); MEAN PLATELET VOLUME 12.1 fl (7.4-10.4); MONO # 0.5 K/mm3 (0.1-0.6); MONO % 9.1 % (1.7-9.3); PLATELET COUNT 86 K/mm3 (130-400); RED BLOOD COUNT 4.84 M/mm3 (4.20-5.60); REDCELL DISTRIBUTION WIDTH-CV 14.1 % (11.5-14.5)
--- NOTE | 2024-02-27 10:52 | NUR ---
Report called to VALERIE Hagen
[2024-02-27 11:22] VITALS: BP 138/88; PULSE 53; TEMP 97.8
--- NOTE | 2024-02-27 13:28 | NUR ---
Patient to discharge to [facility] today.
--- NOTE | 2024-02-27 13:39 | NUR ---
Patient taken by wheelchair to room 337. with the patient. Personal belongings with the patient. No further needs expressed. IV removed, tip intact. Gauze and coban applied.
== END 2024-02-27 13:40 | DRG 41 ==
LOC: COL.ER 11:01 → MEDICAL 14:47
PROVIDERS: Emergency Medicine; Internal Medicine; Physician Assistant; ADMIT Hospitalist
PROC: 0JH632Z Insertion of Monitoring Device into Chest Subcutaneous Tissue and Fascia, Percutaneous Approach (ICD-10-PCS; principal; 2024-02-21)
DX: I63.89 Other cerebral infarction (principal); I47.20 Ventricular tachycardia, unspecified; I50.32 Chronic diastolic (congestive) heart failure; R79.89 Other specified abnormal findings of blood chemistry; E78.1 Pure hyperglyceridemia; H26.9 Unspecified cataract; I11.0 Hypertensive heart disease with heart failure; F43.10 Post-traumatic stress disorder, unspecified; I71.20 Thoracic aortic aneurysm, without rupture, unspecified; C67.9 Malignant neoplasm of bladder, unspecified; K74.60 Unspecified cirrhosis of liver; D69.6 Thrombocytopenia, unspecified
CPT/HCPCS: A9284; A9500-JZ; A9575; C1764; G0378; J1650; J2405; J2704; J2785; J3475; J7030; Q3014; Q9967

== ENCOUNTER → 2024-05-19 | Outpatient (RCR) | payer OTHER ==
[~2024-05-19] MED LIST changes: +BETAPACE 80MG80 MG PO; +CEPHALEXIN500 M1 PO; +COREG 6.256.25 MG/TA PO; +FLONASE NASAL S16 GM NAS; +FLOVENT DI50 MCG/Act IH; +JARDIANCE10 PO; +LASIX 20MG TABL20 MG PO; +LIPITOR 80MG80 MG PO; +PROTONIX20 MG PO; +TOBRADEX EYE DRO5 ML OP; +VITAMIN D 400400 IU PO; +XIFAXAN550 MG PO
== END ==
LOC: MKS.ESL.PT → MKS.ESL.OT 05-06 11:00 → MKS.ESL.PT 05-12 09:30 → MKS.ESL.OT 05-17 11:15 → MKS.ESL.PT 08:00
DX: I63.542 Cerebral infarction due to unspecified occlusion or stenosis of left cerebellar artery (principal)

== ENCOUNTER 2024-06-16 08:45 | Outpatient (RCR) | payer OTHER | END 2024-06-19 | LOC: MKS.ESL.OT | DX: I63.542 Cerebral infarction due to unspecified occlusion or stenosis of left cerebellar artery (principal) ==